=== PATIENT | male | born 1990 | race Hispanic/Latino ===

== ENCOUNTER 2018-07-12 07:59 | Emergency (ER) | payer SELFPAY ==
[2018-07-12 08:29] LABS: Absolute Lymphocytes (CBC) 1.3 K/uL (0.7-4.9); Absolute Monocytes 0.5 K/uL (0.1-1.3); Basophils % 0.3 % (0-1.3); Eosinophils % 0.1 % (0-4.4); Hematocrit 48.2 % (39.6-49.0); Lymphocytes % 12.2 % (15.3-44.8); MPV 9.5 fL (7.6-11.3); Monocytes % 4.2 % (3.3-12.3); RBC Red Blood Cell Count 5.61 M/uL (4.33-5.43)
[2018-07-12] MEDS ORDERED: ONDANSETRON 4 MG/2 ML VIAL ONE (08:37)
[2018-07-12] MEDS ORDERED: KETOROLAC 30 MG/ML INJ ONE (08:38)
--- NOTE | 2018-07-12 08:52 | RAD REPORT ---
EXAM DESCRIPTION: CT - Abdomen Pelvis Wo Contrast - 07/12/2018 8:44 am CLINICAL HISTORY: Left lower quadrant pain, vomiting, fever and chills COMPARISON: None. TECHNIQUE: Axial [address] imaging of the abdomen and pelvis was performed without IV contrast. No IV contrast was given because of allergy, abnormal renal function, patient refusal or physician re quest. Oral contrast was given. All CT scans are performed using dose optimization technique as appropriate and may include automated exposure control or mA/KV adjustment according to patient size. FINDINGS: No suspicious findings in the lung bases. The liver, spleen and pancreas show no suspicious findings on non-contrast imaging. Gallbladder and b iliary tree are also without suspicious finding. Patient has mild dilatation of the pelvis and calices on the left. There is a 5 millimeter stellate c alcification at the left UPJ causing the mild hydronephrosis. Patient has punctate 1 millimeter calcu li in several lower pole calices an a 3 millimeter calcification in an upper pole calyx on the left. Minimal stranding in the left-side perinephric fat. Patient has right-sided nephrocalcinosis. No sig nificant adrenal finding. Isodense renal masses and pyelonephritis cannot be excluded in the absence of IV contrast. Urinary bladder is contracted limiting assessment. No bladder calculi seen. Calcifica tions present in a normal size prostate gland. No dilated bowel loops or bowel wall thickening. No free air, free fluid or inflammatory stranding. N o mass or bulky lymphadenopathy. Patient has a small 2.5 centimeter umbilical hernia with 8 millimete r neck. No suspicious bony findings. IMPRESSION: A 5 millimeter stellate calcification is present at the left UPJ causing mild hydronephr osis of the pelvis and calices. Mild perinephric stranding on the left. Pyelonephritis and isodense masses are not excluded. Full assessment is limited is the absence of IV contrast.
[2018-07-12 08:58] LABS: Albumin 4.3 g/dL (3.4-5.0); Bilirubin Direct 0.2 mg/dL (0-0.2); Bilirubin Total 1.2 mg/dL (0.2-1.0); Potassium 3.8 mmol/L (3.5-5.1); Protein, Total 7.7 g/dL (6.4-8.2)
[2018-07-12 09:18] LABS: Urine Blood 2+ (NEG); Urine Glucose NEGATIVE (NEG); Urine Protein NEGATIVE (NEG); Urine pH 7.5 (5.0-7.0)
[2018-07-12 09:37] LABS: Urine Bacteria NONE SEEN /HPF (NONE SEEN); Urine Culture Reflex Order NOT NEEDED; Urine RBC 20-50 /HPF (NONE SEEN)
--- NOTE | 2018-07-12 09:49 | ER ---
Nurse's Notes [facility] Name: Rogelio Cid Jr Age: 28 yrs Sex: Male : 1990 Arrival Date: 07/12/2018 Time: 08:03 Bed 5 Private MD: None, None Diagnosis: Left side Ureterolithiasis with associated Hydronephrosis Presentation: 07/12 08:09 Presenting complaint: Patient states: i was awaken by my this abd pain on my L lower hj quadrant; reports nausea, reports vomiting x 3; denies fever and chills; checked my BP- 194/102; been taking my mom's Rx meds losartan but i wasn't diagnosed with high BP; denies diarrhea; pain is 4/10;. Transition of care: patient was not received from another setting of care. Onset of symptoms was July 12, 2018. Risk Assessment: Do you want to hurt yourself or someone else? Patient reports no desire to harm self or others. Initial Sepsis Screen: Does the patient meet any 2 criteria? No. Patient's initial sepsis screen is negative. Does the patient have a suspected source of infection? No. Patient's initial sepsis screen is negative. Care prior to arrival: None. 08:09 Method Of Arrival: Ambulatory 08:09 Acuity: CHARLY 3 hj Triage Assessment: 08:13 General: Appears in no apparent distress. uncomfortable, Behavior is calm, cooperative, hj appropriate for age. Pain: Complains of pain in abdomen. GI: Reports lower abdominal pain, nausea, vomiting. Historical: - Allergies: 08:12 No Known Allergies; hj - Home Meds: 08:12 None [Active]; hj - PMHx: 08:12 None; hj - PSHx: 08:12 None; hj - Immunization history:: Adult Immunizations up to date. - Social history:: Smoking status: Patient/guardian denies using tobacco, Patient/guardian denies using alcohol. - Ebola Screening: : Patient negative for fever greater than or equal to 101.5 degrees Fahrenheit, and additional compatible Ebola Virus Disease symptoms Patient denies exposure to infectious person Patient denies travel to an Ebola-affected area in the 21 days before illness onset. Screenin:13 Abuse screen: Denies threats or abuse. Denies injuries from another. Nutritional hj screening: No deficits noted. Tuberculosis screening: No symptoms or risk factors identified. Fall Risk None identified. Assessment: 08:13 GI: Bowel sounds present X 4 quads. hj 08:13 General: Appears in no apparent distress. uncomfortable, Behavior is calm, cooperative, hj appropriate for age. Pain: Complains of pain in abdomen. Neuro: Level of Consciousness is awake, alert, obeys commands, Oriented to person, place, time, situation, Appropriate for age. Cardiovascular: Capillary refill < 3 seconds Patient's skin is warm and dry. Respiratory: Airway is patent Respiratory effort is even, unlabored, Respiratory pattern is regular, symmetrical. : No signs and/or symptoms were reported regarding the genitourinary system. EENT: No signs and/or symptoms were reported regarding the EENT system. Derm: No signs and/or symptoms reported regarding the dermatologic system. Musculoskeletal: No signs and/or symptoms reported regarding the musculoskeletal system. Vital Signs: 08:14 BP 165 / 109; Pulse 70; Resp 18; Temp 98.1(TE); Pulse Ox 100% on R/A; Weight 79.38 kg; hj Height 5 ft. 8 in. (172.72 cm); Pain 4/10; 09:58 BP 136 / 96; Pulse 75; Resp 18; Pulse Ox 100% on R/A; hj 08:14 Body Mass Index 26.61 (79.38 kg, 172.72 cm) ED Course: 08:03 Patient arrived in ED. mr 08:03 None, None is Private Physician. mr 08:06 Kiran Donovan MD is Attending Physician. wa 08:09 Damion Brambila, MELIDA is Primary Nurse. hj 08:11 Triage completed. hj 08:13 Arm band placed on right wrist. hj 08:14 Patient has correct armband on for positive identification. Placed in gown. Bed in low hj position. Call light in reach. Side rails up X 1. Adult w/ patient. 08:15 Initial lab(s) drawn, by me, sent to lab. Inserted saline lock: 20 gauge in right hj antecubital area, using aseptic technique. Blood collected. 08:46 CT completed. Patient tolerated procedure well. Patient moved back from CT. ls3 08:48 CT Abd/Pelvis - Without Cont In Process Unspecified. EDMS 09:02 Urine Microscopic Only Sent. iw 09:48 Anabella Green MD is Referral Physician. wa 09:58 No provider procedures requiring assistance completed. IV discontinued, intact, hj bleeding controlled, No redness/swelling at site. Pressure dressing applied. Administered Medications: 08:18 Drug: Zofran 4 mg Route: IVP; Site: right antecubital; hj 09:02 Follow up: Response: No adverse reaction iw 08:18 Drug: TORadol 30 mg Route: IVP; Site: right antecubital; hj 09:02 Follow up: Response: No adverse reaction; Pain is decreased iw Outcome: 09:49 Discharge ordered by MD. wa 09:58 Discharged to home ambulatory, with family. 09:58 Condition: stable 09:58 Discharge instructions given to patient, family, Instructed on discharge instructions, follow up and referral plans. medication usage, Demonstrated understanding of instructions, follow-up care, medications, Prescriptions given X 3. 09:59 Patient left the ED. Signatures: Dispatcher [employer] EDIN Sonam Rothman Irene, RN RN Damion Brambila RN RN Kiran Donovan MD MD wa Siler, Lynzie ls3
--- NOTE | 2018-07-12 09:49 | EDPHYS ---
Physician Documentation [facility] Name: Rogelio Cid Jr Age: 28 yrs Sex: Male : 1990 Arrival Date: 07/12/2018 Time: 08:03 Bed 5 Private MD: None, None ED Physician Kiran Donovan HPI: 07/12 09:15 This 28 yrs old Male presents to ER via Ambulatory with complaints of wa Abdominal Pain, Vomiting, High Blood Pressure. 09:15 The patient presents to the emergency department with nausea, vomiting, abdominal pain, wa of the L flank, c/o L flank pain. began at 2AM. has had 2 episodes of associated vomiting. denies diarrhea. admits to h/o kidney stones in the past. Onset: The symptoms/episode began/occurred last night. Possible causes: unknown. The symptoms are aggravated by nothing. The symptoms are alleviated by nothing. Associated signs and symptoms: Pertinent positives: nausea, vomiting, Pertinent negatives: anorexia, constipation, diarrhea, dysuria, fever, hematuria. Severity of symptoms: At their worst the symptoms were moderate in the emergency department the symptoms are unchanged. The patient has not experienced similar symptoms in the past. The patient has not recently seen a physician. Historical: - Allergies: 08:12 No Known Allergies; hj - Home Meds: 08:12 None [Active]; hj - PMHx: 08:12 None; hj - PSHx: 08:12 None; hj - Immunization history:: Adult Immunizations up to date. - Social history:: Smoking status: Patient/guardian denies using tobacco, Patient/guardian denies using alcohol. - Ebola Screening: : Patient negative for fever greater than or equal to 101.5 degrees Fahrenheit, and additional compatible Ebola Virus Disease symptoms Patient denies exposure to infectious person Patient denies travel to an Ebola-affected area in the 21 days before illness onset. ROS: 09:17 Constitutional: Negative for fever, chills, and weight loss, Eyes: Negative for injury, wa pain, redness, and discharge, ENT: Negative for injury, pain, and discharge, Neck: Negative for injury, pain, and swelling, Cardiovascular: Negative for chest pain, palpitations, and edema, Respiratory: Negative for shortness of breath, cough, wheezing, and pleuritic chest pain, Back: Negative for injury and pain, : Negative for injury, bleeding, discharge, and swelling, MS/Extremity: Negative for injury and deformity, Skin: Negative for injury, rash, and discoloration, Neuro: Negative for headache, weakness, numbness, tingling, and seizure. 09:17 Abdomen/GI: Positive for abdominal pain, nausea and vomiting, Negative for diarrhea, constipation. 09:17 All other systems are negative. Exam: 09:17 Constitutional: This is a well developed, well nourished patient who is awake, alert, wa and in no acute distress. Head/Face: Normocephalic, atraumatic. Eyes: Pupils equal round and reactive to light, extra-ocular motions intact. Lids and lashes normal. Conjunctiva and sclera are non-icteric and not injected. Cornea within normal limits. Periorbital areas with no swelling, redness, or edema. ENT: Nares patent. No nasal discharge, no septal abnormalities noted. Tympanic membranes are normal and external auditory canals are clear. Oropharynx with no redness, swelling, or masses, exudates, or evidence of obstruction, uvula midline. Mucous membranes moist. Neck: Trachea midline, no thyromegaly or masses palpated, and no cervical lymphadenopathy. Supple, full range of motion without nuchal rigidity, or vertebral point tenderness. No Meningismus. Chest/axilla: Normal chest wall appearance and motion. Nontender with no deformity. No lesions are appreciated. Cardiovascular: Regular rate and rhythm with a normal S1 and S2. No gallops, murmurs, or rubs. Normal PMI, no JVD. No pulse deficits. Respiratory: Lungs have equal breath sounds bilaterally, clear to auscultation and percussion. No rales, rhonchi or wheezes noted. No increased work of breathing, no retractions or nasal flaring. Back: No spinal tenderness. No costovertebral tenderness. Full range of motion. Male : Normal genitalia with no discharge or lesions. Skin: Warm, dry with normal turgor. Normal color with no rashes, no lesions, and no evidence of cellulitis. MS/ Extremity: Pulses equal, no cyanosis. Neurovascular intact. Full, normal range of motion. Neuro: Awake and alert, GCS 15, oriented to person, place, time, and situation. Cranial nerves II-XII grossly intact. Motor strength 5/5 in all extremities. Sensory grossly intact. Cerebellar exam normal. Normal gait. Psych: Awake, alert, with orientation to person, place and time. Behavior, mood, and affect are within normal limits. 09:17 Abdomen/GI: Inspection: abdomen appears normal, Bowel sounds: normal, in all quadrants, Palpation: nontender, in all quadrants. Vital Signs: 08:14 BP 165 / 109; Pulse 70; Resp 18; Temp 98.1(TE); Pulse Ox 100% on R/A; Weight 79.38 kg; hj Height 5 ft. 8 in. (172.72 cm); Pain 4/10; 09:58 BP 136 / 96; Pulse 75; Resp 18; Pulse Ox 100% on R/A; hj 08:14 Body Mass Index 26.61 (79.38 kg, 172.72 cm) MDM: 08:06 Patient medically screened. tx 09:17 Differential diagnosis: Nonspecific abd pain, gastritis, suspect ureterolithiasis. r/o wa infectious process. 09:46 Data reviewed: vital signs, nurses notes, lab test result(s), radiologic studies. Test wa interpretation: by ED physician or midlevel provider: labs noted for hematuria and ketonuria. CT abd/pelvis: consistent with 5 mm L UPJ stone with assoc hydro. . Response to treatment: the patient's symptoms have markedly improved after treatment. Special discussion: L UPJ stone. no associated infection on urinalysis. will d/c with close f/u. flomax, zofran, toradol. urology f/u. 07/12 08:18 Order name: Basic Metabolic Panel; Complete Time: 09:45 07/12 08:18 Order name: CBC with Diff 07/12 08:18 Order name: Hepatic Function; Complete Time: 09:45 07/12 08:18 Order name: Lipase; Complete Time: :45 07/12 09:00 Order name: Urine Microscopic Only; Complete Time: :44 07/12 09:03 Order name: Urine Dipstick--Ancillary (enter results); Complete Time: 09:44 07/12 08:18 Order name: IV Saline Lock; Complete Time: 08:22 07/12 08:18 Order name: Labs collected and sent; Complete Time: 08:22 07/12 08:18 Order name: CT Abd/Pelvis - Without Cont; Complete Time: 08:55 tx 07/12 09:00 Order name: Urine Dipstick-Ancillary (obtain specimen); Complete Time: 09:02 tx Administered Medications: 08:18 Drug: Zofran 4 mg Route: IVP; Site: right antecubital; hj 09:02 Follow up: Response: No adverse reaction iw 08:18 Drug: TORadol 30 mg Route: IVP; Site: right antecubital; hj 09:02 Follow up: Response: No adverse reaction; Pain is decreased iw Disposition: 07/12/18 09:49 Discharged to Home. Impression: Left side Ureterolithiasis with associated Hydronephrosis. - Condition is Stable. - Prescriptions for ketorolac 10 mg Oral tablet - take 1 tablet by ORAL route every 8 hours not to exceed 40 mg in 24hrs; 20 tablet. Zofran 8 mg Oral Tablet - take 1 tablet by ORAL route every 12 hours As needed; 20 tablet. Flomax 0.4 mg Oral Capsule, Sust. Release 24 hr - take 1 capsule by ORAL route once daily for 7 days 1/2 hour following the same meal each day; 7 capsule. - Medication Reconciliation Form, Thank You Letter, Antibiotic Education, Prescription Opioid Use form. - Follow up: Anabella Green MD; When: 2 - 3 days; Reason: Re-evaluation by your physician. - Problem is new. - Symptoms have improved. - Notes: take medication as prescribed. follow up with the urology doctor to check your kidney stone. return here immediately if rapidly worsening concerns Signatures: Dispatcher [employer] EDRI Damion Brambila RN RN Kiran Donovan MD MD tx Tami Carias RN Corrections: (The following items were deleted from the chart) 09:59 09:49 07/12/2018 09:49 Discharged to Home. Impression: Left side Ureterolithiasis with hj associated Hydronephrosis. Condition is Stable. Forms are Medication Reconciliation Form, Thank You Letter, Antibiotic Education, Prescription Opioid Use. Follow up: Anabella Green; When: 2 - 3 days; Reason: Re-evaluation by your physician. Problem is new. Symptoms have improved. wa
== END 2018-07-12 09:59 | disposition home or self-care (01) ==
LOC: ER 07:59
DX: N13.2 Hydronephrosis with renal and ureteral calculous obstruction (principal)
CPT/HCPCS: 36415; 74176; 80048; 80076; 81003; 81015; 83690; 85025; 96374; 96375; 99284; J2405